=== PATIENT | male | born 2000 | race African-American/Black ===

== ENCOUNTER 2021-05-23 11:38 | Emergency (ER) | payer OTHER, SELFPAY ==
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
[2021-05-23 12:09] VITALS: BP 121/78; PULSE 62; RESP 16; TEMP 36.7; O2SAT 100; BMI 25.7
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
== END 2021-05-23 15:54 | disposition home or self-care (01) ==
LOC: HO.ED 15:12
PROVIDERS: Emergency Provider Emergency Medicine
DX: S43.402A Unspecified sprain of left shoulder joint, initial encounter (principal); V43.52XA Car driver injured in collision with other type car in traffic accident, initial encounter; Y93.89 Activity, other specified; Y92.414 Local residential or business street as the place of occurrence of the external cause; Y99.9 Unspecified external cause status
CPT/HCPCS: 73030; 99283